=== PATIENT | female | born 1955 | race Caucasian/White ===

== ENCOUNTER 2024-08-30 08:52 | Day surgery (SDC) | payer MEDICARE, BC, SELFPAY ==
[2024-08-30] VITALS (27 sets, daily range): BP systolic 77–145; BP diastolic 46–95; PULSE 56–97; RESP 14–20; TEMP 35.9–36.6; O2SAT 91–97; BMI 30.9
[2024-08-30] MEDS: OXYCODONE (CR) 10 MG TAB.ER.12H PO (09:30)
[2024-08-30] MEDS: ACETAMINOPHEN 500 MG TABLET 1000 MG PO ×3 (09:30→21:21)
[2024-08-30] MEDS: CELECOXIB 200 MG CAPSULE PO ×2 (09:30→21:21)
[2024-08-30] MEDS: SODIUM CHLORIDE 0.9 % (FLUSH) 10 ML SYRINGE IVF (09:45)
[2024-08-30] MEDS: LACTATED RINGERS 1000 ML 1,000 ML 100 ML IV ×2 (09:45→13:57)
[2024-08-30] MEDS: fentaNYL 100 MCG/2 ML inj IVP (10:34)
[2024-08-30] MEDS: MIDAZOLAM HCL 1 MG/ML inj IVP (10:34)
--- NOTE | 2024-08-30 10:40 | SUR.PREOP ---
TIME?OUT:?1033 PT/RN/MDA?VERIFICATION?OF?SURGICAL?SITE,?PROCEDURE,?AND?CONSENT OBTAINED?PRIOR?TO?INVASIVE?PROCEDURE.
[2024-08-30] MEDS: TRANEXAMIC ACID 100 MG/ML INJ 1000 MG IV (11:20)
[2024-08-30] MEDS: CEFAZOLIN 2 GM INJ IVP (11:20)
--- NOTE | 2024-08-30 12:22 | CRLHL7_ITS ---
For Patients: As a result of the Cures Act, medical imaging exams and procedure reports are released immediately into your electronic medical record. You may view this report before your referring provider. If you have questions, please contact your health care provider. INDICATION: Postoperative total knee arthroplasty TECHNIQUE: Knee radiograph 2 views left COMPARISON: None FINDINGS: Bone: No acute fractures or aggressive bone lesions are identified. Joint: The patient is status post a total knee arthroplasty with patellar resurfacing. No significant knee effusion is seen. Soft tissue: Anterior skin, subcutaneous gas and joint gas are present from recent surgery. No radiopaque foreign bodies are seen. IMPRESSION: 1. There is an unremarkable postoperative appearance of the knee arthroplasty. Dictated by: Easton Sahu MD @ 08/31/2024 11:36:17 (Electronically Signed)
--- NOTE | 2024-08-30 12:24 | PM.ORPRC ---
Procedure Note Date of procedure: 08/30/24 Procedure: PREOPERATIVE DIAGNOSIS: Left knee osteoarthritis POSTOPERATIVE DIAGNOSIS: Left knee osteoarthritis NAME OF OPERATION: Left total knee arthroplasty SURGEON: David Rhodes MD FULFILLMENT ASSOCIATE: Merissa Barker PA-C ANESTHESIA: Spinal ESTIMATED BLOOD LOSS: 0 mL COMPLICATIONS: None SPECIMENS: None DRAINS: None PREOPERATIVE ANTIBIOTICS: Ancef 1 g IMPLANTS: 1. J&J Attune #4 posterior stabilized femur 2. #4 fixed-bearing tibia 3. #4 posterior stabilized, 10 mm fixed-bearing polyethylene 4. 38 patella INDICATIONS: The patient is a 69-year-old with a longstanding history of severe, unrelenting left knee pain secondary to end-stage (grade IV) left knee osteoarthritis. Despite appropriate nonoperative management, including activity modification, anti-inflammatories, [id number] pain medication, bracing, physical therapy, and injections they continue to have pain and disability. Operative intervention was offered. The risks, benefits and expected outcomes were discussed in detail. These included but were not limited to: Infection, bleeding, injury to blood vessel or nerve, venous thromboembolism. All questions were answered to their satisfaction. Use of an assistant to the director was necessary throughout the case for patient positioning and safety, soft tissue retraction, and closure. PROCEDURE: Spinal anesthesia was administered. The patient was placed supine on the operating table. The assistant to the director made sure the patient was positioned appropriately. The lower extremity was prepped and draped in the usual sterile fashion. The limb was exsanguinated with the Vaibhav bandage. The pneumatic tourniquet was inflated to 300 mmHg. A standard anterior incision was made with the knee in flexion. Subcutaneous dissection was sharply taken through fascial layer #1. Full-thickness medial and lateral flaps were elevated. The assistant to the director retracted the soft tissues and protected them throughout the case. A standard subvastus approach was made. The patella was subluxed. The infrapatellar fat pad was debrided. The menisci and cruciate ligaments were sharply d?brided. Marginal osteophytes were d?brided with the rongeur. The drill was used to penetrate the femoral canal. The canal was aspirated and irrigated with pulse lavage. The intramedullary femoral guide was placed for a 5-degree valgus cut, removing 10 mm off the distal femur. The saw was used to make the cut. Whitesides line and the trans epicondylar axis were marked. The femoral sizing guide was pinned onto the distal femur. Three degrees of external rotation nicely parallels the transepicondylar axis. Pins were placed for posterior referencing. The four-in-one cutting guide was pinned onto the distal femur. The anterior, posterior, and chamfer cuts were made. The assistant to the director protected the collateral ligaments. The box cutting guide was pinned. The box cuts were made. The boxed trial was placed and was an excellent fit. Drill holes for the lugs were made. Attention was then turned to the proximal tibia. The extramedullary tibial guide was placed for a neutral varus/valgus cut with 5 degrees of posterior slope, removing 2 mm based off the medial tibial surface. The assistant to the director protected the collateral ligaments and the neurovascular bundle. The saw was used to make the cut. Trial components were placed. The knee was nicely balanced in both flexion and extension. The trial components were removed. The tray was placed in appropriate rotation, parallel to our tibial cutting pins. It was pinned by the assistant to the director and the drill and the punch were used. The tray was removed. The punch was used again. We placed a bone plug in the femoral canal. Attention was then turned to the patella. [place] patellar thickness was 19 mm. The lobster claw resection guide was used with the 7.5 mm óscar plus a saw blade used as an extra óscar. The saw was used to make the cut. Drill holes were made by the assistant to the director. The trial was placed and was an excellent fit. Cancellous surfaces were irrigated with pulse lavage and thoroughly dried by the assistant to the director. We cemented the tibial component, then the femoral component. We impacted the 10 mm polyethylene onto the tibial tray. The knee was brought into full extension. We then cemented the patellar component. Excessive cement was removed. The cement was allowed to harden. The knee was taken through a range of motion and was found to be nicely balanced in both flexion and extension. The patella tracks centrally. The assistant to the director did a three minute dilute Betadine solution soak. The assistant to the director irrigated the wound with 3 liters of normal saline via pulse lavage. The assistant to the director reapproximated the extensor mechanism with #1 Vicryl in an interrupted nirhdu-tr-dseoy fashion. The assistant to the director then ran the extensor mechanism with a #1 PDO Stratafix. The assistant to the director closed the subcutaneous tissues with a 3-0 Stratafix and the skin with a running 3-0 Stratafix in a subcuticular fashion. Glue was used to seal the skin. The assistant to the director placed a dry dressing. Sponge and needle counts were correct x2. The patient tolerated the procedure well. There were no apparent complications. They were carefully transferred to the hospital bed and taken to the postanesthesia care unit in satisfactory condition. PLAN: The patient will be mobilized with physical therapy. Aspirin will be used for DVT prophylaxis. They will be discharged to home once medically appropriate.
--- NOTE | 2024-08-30 12:40 | W.PM.NB ---
Nerve Block Nerve Block Time Seen by Provider: 10:35 Date Seen: 08/30/24 Type of block requested by surgeon for post-operative analgesia: adductor canal Side: left Time out performed: Yes Verification of patient name: Yes Verification of date of : Yes Site marking: site marked Name of person performing procedure: Brody Continuous monitoring Was continuous monitoring of O2 sat, B/P, associate veterinarian, recorded every 15 minutes?: Yes Procedure Checklist: sterile prep, needles and gloves Ultrasound guided. Images saved: Yes Medications given in 5ml increments after negative aspiration: Marcaine %: 0.25 mL: 15 Needle gauge: 20 Precedex (mcg): 25 Patient tolerated procedure well: Yes Block Charges Block Charge (with Pro Fee): Femoral Nerve Use of Ultrasound Machine for Block: Yes- US Guidance/pain block
--- NOTE | 2024-08-30 12:41 | P.ANES_ITS ---
Anesthesia Charges Start Date/Time Anesthesia Start Date: 08/30/24 Anesthesia Start Time: 10:49 Stop Date/Time Anesthesia Stop Date: 08/30/24 Anesthesia Stop Time: 13:22 Summary Extremes of Age - Over 70 or under 1: MDA Coding CPT Codes CPT Codes: ANESTH KNEE ARTHROPLASTY - 48550 ([id number]) P2 - PATIENT W/MILD SYST DISEASE, QK - MAIL PROCESSING EQUIPMENT MECHANIC 2-4 CNCRNT ANES PROC, QX - EARTH SCIENCE PROFESSOR SVC W/ MD MED DIRECTION Additional Codes: Summary - Extremes of Age - Over 70 or under 1: MDA ([id number])
--- NOTE | 2024-08-30 12:41 | W.PM.NB ---
Nerve Block Nerve Block Time Seen by Provider: 10:35 Date Seen: 08/30/24 Type of block requested by surgeon for post-operative analgesia: geniculars Side: left Time out performed: Yes Verification of patient name: Yes Verification of date of : Yes Site marking: site marked Name of person performing procedure: Brody Continuous monitoring Was continuous monitoring of O2 sat, B/P, night monitor, recorded every 15 minutes?: Yes Procedure Checklist: sterile prep, needles and gloves Ultrasound guided. Images saved: Yes Medications given in 5ml increments after negative aspiration: Marcaine %: 0.25 mL: 9 Needle gauge: 25 Patient tolerated procedure well: Yes Block Charges Block Charge (with Pro Fee): Genicular Nerve Block
--- NOTE | 2024-08-30 12:41 | W.ANESCHARGE ---
Anesthesia Charges Start Date/Time Anesthesia Start Date: 08/30/24 Anesthesia Start Time: 10:49 Stop Date/Time Anesthesia Stop Date: 08/30/24 Anesthesia Stop Time: 13:22 Summary Extremes of Age - Over 70 or under 1: MDA Coding CPT Codes CPT Codes: ANESTH KNEE ARTHROPLASTY - 06924 ([id number]) P2 - PATIENT W/MILD SYST DISEASE, QK - STAFF NURSE ANESTHETIST 2-4 CNCRNT ANES PROC, QX - VULCAN CREWMEMBER SVC W/ MD MED DIRECTION Additional Codes: Summary - Extremes of Age - Over 70 or under 1: MDA ([id number])
[2024-08-30] MEDS: PHENYLEPHRINE 100 MCG/ML SYRINGE IVP (13:27)
--- NOTE | 2024-08-30 13:31 | P.ANES_ITS ---
Anesthesia Charges Start Date/Time Anesthesia Start Date: 08/30/24 Anesthesia Start Time: 10:49 Stop Date/Time Anesthesia Stop Date: 08/30/24 Anesthesia Stop Time: 13:22 Coding CPT Codes CPT Codes: ANESTH KNEE ARTHROPLASTY - 25290 ([id number]) P2 - PATIENT W/MILD SYST DISEASE, QK - SIZE CUTTER 2-4 CNCRNT ANES PROC, QX - FACTORY MAINTENANCE TECHNICIAN SVC W/ MD MED DIRECTION
--- NOTE | 2024-08-30 13:31 | W.ANESCHARGE ---
Anesthesia Charges Start Date/Time Anesthesia Start Date: 08/30/24 Anesthesia Start Time: 10:49 Stop Date/Time Anesthesia Stop Date: 08/30/24 Anesthesia Stop Time: 13:22 Coding CPT Codes CPT Codes: ANESTH KNEE ARTHROPLASTY - 31289 ([id number]) P2 - PATIENT W/MILD SYST DISEASE, QK - FOOD SPECIALIST 2-4 CNCRNT ANES PROC, QX - ROLLING MACHINE TENDER SVC W/ MD MED DIRECTION
--- NOTE | 2024-08-30 13:40 | SUR.PHASEI ---
Patient came to PACU awake. Blood pressure is low, she received blood pressure support in the OR. Phenylephrine given. Blood pressure came up.
[2024-08-30] MEDS: fentaNYL 100 MCG/2 ML inj 50 MCG IVP (13:42)
--- NOTE | 2024-08-30 13:55 | SUR.PHASEI ---
Patient's pain is under control, awake and talking. She is comfortable. Patient meets discharge criteria for PACU
[2024-08-30] MEDS: HYDROmorphone 0.5 mg/0.5 ml inj IVP ×4 (14:22→18:36)
[2024-08-30] MEDS: OXYCODONE 5 MG TABLET PO ×3 (14:52→22:44)
--- NOTE | 2024-08-30 15:21 | PC.NURSE ---
End of shift [id number] - Pt arrived from PACU at approximately 1400. Pt arrived awake, alert, oriented, and pleasant. Tolerating RA, fluids, and food with no report of nausea. Pt reported pain in operative knee as 6/10. Given medication per MAR with pt reporting little improvement. RN administered alternate medication per MAR with pt reporting tolerating pain. Family at bedside, pt appears to be resting in bed with call light in reach.
--- NOTE | 2024-08-30 15:27 | P.IMCN_ITS ---
Date of Consult Patient: Shahram Patient Consult date: 08/30/24 Requesting Physician: Orthopedics Primary Care Provider: Angie Marshall MD Consult Narrative Reason for consult: Medical management Narrative: Unique Salazar is a 69 year old female past medical history significant for hyperlipidemia not currently on a statin, migraine headaches, osteopenia, r osacea, elevated fasting glucose, history of right TKA is POD#0 s/p left total knee arthroplasty with Dr. Rhodes. There have been no perioperative complications or nursing concerns reported. Estimated total blood loss documented as 0 ml. Updated and reviewed the active medical problems, past medical history, past surgical history, social history, allergies and medications in our electronic EMR. Postoperatively, patient reports the block did not take so her knee pain is elevated at this time. Just received in oxycodone. Starting to feel tired. Denies headache or dizziness. Denies chest pain or shortness of breath. Tolerating orals without nausea vomiting. Review of Systems Narrative: REVIEW OF SYSTEMS: Complete review of systems performed and negative unless otherwise stated in HPI or below. PFSH PFS Medical History Migraine with aura, not intractable ?G43.109 - Migraine with aura, not intractable, without status migrainosus ( ICD-10) Elevated fasting glucose ?R73.01 - Impaired fasting glucose (ICD-10) Osteoarthritis ?M19.90 - Unspecified osteoarthritis, unspecified site (ICD-10) Osteopenia ?M85.80 - Other specified disorders of bone density and structure, unspecified site (ICD-10) Hyperlipidemia ?E78.5 - Hyperlipidemia, unspecified (ICD-10) Rosacea ?L71.9 - Rosacea, unspecified (ICD-10) Surgical History History of delivery ?Z98.891 - History of uterine scar from previous surgery (ICD-10) History of bunionectomy ?Z98.890 - Other specified postprocedural states (ICD-10) History of appendectomy ?Z90.49 - Acquired absence of other specified parts of digestive tract (ICD- 10) History of total right knee replacement (09/25/20) ?Z96.651 - Presence of right artificial knee joint (ICD-10) Social History What is your current living situation?: I presently have a place to live In the past 12 months, utilities in danger of being shut off: no In past 12 months, lack of transportation kept you from medical appts, meetings, work, or getting things needed for daily living: no In the past 12 mos, have been you worried that your food would run out before you had money to buy more?: never true In the past 12 mos, the food you bought just didn't last and you didn't have money to buy more?: never true Highest level of school completed/degree received: high school graduate Smoking Status: Never smoker Do you use any of these nicotine containing products: None Second hand tobacco smoke exposure: No How often do you have a drink containing alcohol: monthly or less Alcohol type: wine How many standard drinks containing alcohol do you have on a typical day: 1 or 2 How often do you have six or more drinks on one occasion: Never AUDIT-C Alcohol total score: 1 Non-prescribed substance use: denies use Caffeine: No How often does anyone, including family, friends and others, physically hurt you : never How often does anyone, including family, friends and others, insult or talk down to you: never How often does anyone, including family, friends and others, threaten you with harm: never How often does anyone, including family, friends and others, scream or curse at you: never service: No Meds Home Medications and Allergies Home Medications ?Medication ?Instructions ?Recorded ?Confirmed ?Type sumatriptan succinate 50 mg tablet 50 mg PO Q2H PRN 03/21/24 08/29/24 History Allergies Allergy/AdvReac Type Severity Reaction Status Date / Time No Known Drug Allergies Allergy Verified 08/30/24 09:13 Exam Narrative: Exam Narrative: PHYSICAL EXAM General: Pleasant, conversant, NAD HEENT: Normocephalic, atraumatic, sclera white, EOMI, oral mucosa moist Cardiovascular: RRR, S1S2. No pitting edema Pulmonary: CTA bilaterally without rhonchi, rales, expiratory wheezes. No dyspnea Neurological: Alert, answering questions appropriately, cranial nerves intact, no focal findings Extremities: No gross joint deformity or swelling. Postoperative dressing in place, dry. Neurovascularly intact Skin: Warm, dry. Const: Vital Signs, click to edit/add: Vital Signs - 24 hr 08/30/24 09:40 08/30/24 10:34 08/30/24 10:40 Temperature 97.9 F Pulse Rate 65 67 64 Respiratory Rate 14 14 14 Blood Pressure 145/93 H 140/86 H 100/65 Pulse Oximetry 94 94 94 Oxygen Delivery Me thod Room Air Nasal Cannula Nasal Cannula Oxygen Flow Rate 2 2 08/30/24 10:45 08/30/24 13:20 08/30/24 13:22 Temperature 97.8 F Pulse Rate 70 61 Respiratory Rate 14 14 Blood Pressure 90/62 77/46 L 77/51 L Pulse Oximetry 95 92 Oxygen Delivery Me thod Nasal Cannula Nasal Cannula Oxygen Flow Rate 2 2 08/30/24 13:25 08/30/24 13:30 08/30/24 13:35 Temperature Pulse Rate 64 60 60 Respiratory Rate 14 16 16 Blood Pressure 81/48 L 113/73 101/63 Pulse Oximetry 92 97 95 Oxygen Delivery Me thod Nasal Cannula Nasal Cannula Nasal Cannula Oxygen Flow Rate 2 2 2 08/30/24 13:40 08/30/24 13:45 08/30/24 13:50 Temperature 97.8 F Pulse Rate 64 56 L 64 Respiratory Rate 16 16 16 Blood Pressure 102/67 102/65 94/55 L Pulse Oximetry 96 94 94 Oxygen Delivery Me thod Room Air Room Air Room Air Oxygen Flow Rate 0 08/30/24 14:00 08/30/24 14:15 08/30/24 14:30 Temperature 96.7 F L 96.9 F L 96.6 F L Pulse Rate 63 65 63 Respiratory Rate 16 16 16 Blood Pressure 110/70 113/79 116/79 Pulse Oximetry 95 92 91 Oxygen Delivery Me thod Room Air Room Air Room Air Oxygen Flow Rate 08/30/24 14:45 08/30/24 14:59 08/30/24 15:15 Temperature 96.9 F L 96.7 F L Pulse Rate 77 63 Respiratory Rate 16 16 16 Blood Pressure 118/79 110/70 Pulse Oximetry 93 95 93 Oxygen Delivery Me thod Room Air Room Air Room Air Oxygen Flow Rate Assessment and Plan Assessment and plan (1) Osteoarthritis of left knee: Problem comment: -POD#0 s/p left TKA, Dr. Rhodes -perioperative management including pain management and anticoagulation per Orthopedic surgery -encourage postoperative pulmonary hygiene -PT OT consults -plan to discharge home with spouse tomorrow Status: Acute Total Time Spent Total Time Spent: Total time spent caring for the patient today was 45 minutes. This includes time spent for the visit reviewing the chart, time spent during the visit, time spent after the visit and documentation and planning in coordination of care.
[2024-08-30] MEDS: LIDOCAINE 5% PATCH 1 PATCH TRANSDERMA (17:03)
[2024-08-30] MEDS: ONDANSETRON 2 MG/ML inj 4 MG IVP (17:07)
[2024-08-30] MEDS: CEFAZOLIN 1 GM in 0.9 % SODIUM CHLORIDE Mini-bag 100 ML IVPB (18:14)
--- NOTE | 2024-08-30 18:58 | PC.NURSE ---
End of shift report [id number]: Alert and oriented x 4. Pain to knee reported, patient receiving minimal relief from PRN medications, ice and positioning. PRN dilaudid 0.5mg administer every 1-1.5 hours for severe pain, also receiving PRN oxycodone 10mg q2h and scheduled tylenol. CMS to left knee intact, patient is able to move left lower extremity, able to wiggle toes and can feel each area on extremity that entry writer is touching. Dressing is clean, dry and intact. No areas of increased redness and not drainage noted. At 1700 patient transferred to bedside commode with minimal assist with gait belt [place] [facility] [place] became diaphoretic and nauseated with transfer. PRN zofran administered and aromatherapy patch utilized along with alcohol prep pad. Nausea resolved. Pain continues in left knee and varies between 6-9, new order for lidocaine patch to left thigh. Accounting Practice Manager placed call to generation engineer ortho BRIGETTE Enriquez and new orders for hydroxyzine 50mg q4h prn for pain and celebrex 200mg po BID. Accounting Practice Manager updated Jenise Brown.
--- NOTE | 2024-08-30 20:38 | P.NB_ITS ---
Nerve Block Nerve Block Time Seen by Provider: 20:25 Date Seen: 08/30/24 Type of block requested by surgeon for post-operative analgesia: adductor canal Side: left Time out performed: Yes Verification of patient name: Yes Verification of date of : Yes Site marking: site marked Name of person performing procedure: l faith Continuous monitoring Was continuous monitoring of O2 sat, B/P, gaming surveillance observer, recorded every 15 minutes?: Yes Procedure Checklist: sterile prep, needles and gloves Ultrasound guided. Images saved: Yes Medications given in 5ml increments after negative aspiration: Marcaine %: 0.25 mL: 10 and Exparel mL: 10 Patient tolerated procedure well: Yes Block Charges Block Charge (with Pro Fee): Femoral Nerve Use of Ultrasound Machine for Block: Yes- US Guidance/pain block
[2024-08-30] MEDS: SENNOSIDES 1 TAB TABLET 2 TAB PO (21:21)
[2024-08-30] MEDS: ASPIRIN 81 MG TABLET EC PO (21:22)
[2024-08-30] MEDS: hydrOXYzine pamoate 25 MG CAPSULE 50 MG PO (22:44)
[2024-08-30] MEDS: 0.9 % SODIUM CHLORIDE 500 ML IV (22:58)
[2024-08-31] MEDS: OXYCODONE 5 MG TABLET PO ×4 (02:31→10:02)
[2024-08-31] MEDS: CEFAZOLIN 1 GM in 0.9 % SODIUM CHLORIDE Mini-bag 100 ML IVPB (02:31)
[2024-08-31] MEDS: ACETAMINOPHEN 500 MG TABLET 1000 MG PO ×2 (02:31→09:40)
[2024-08-31 03:00] VITALS: BP 133/96; PULSE 81; RESP 18; TEMP 36.9; O2SAT 94
--- NOTE | 2024-08-31 05:37 | PC.NURSE ---
[id number] Pt pain controlled well during night, pt able to sleep. ice to L knee, dressing C/D/I, ambulating with walker, GB, 1A, tolerating activity well. denies N/V.
[2024-08-31 07:00] VITALS: BP 102/67; PULSE 78; PULSE 81; RESP 16; TEMP 36.7; O2SAT 96
[2024-08-31 07:02] LABS: Basophils Percent Auto 0.1 % (0.0-3.0); Hematocrit 41.6 % (33.0-51.0); Hemoglobin* 13.3 gm/dL (12.0-16.0); Immature Granulocytes Pct Auto 0.2 %; Lymphocytes Percent Auto 15.1 % (20-44); Mean Corpuscular HGB Conc 32 gm/dL (32-36); Mean Corpuscular Hemoglobin 30 pg (26-34); Mean Corpuscular Volume 93 fL (80-100); Monocytes Percent Auto 10.3 % (0.0-11.0); Neutrophils Percent Auto 74.3 % (42.0-72.0); Platelet Count* 244 K/uL (140-440); RDW Coefficient of Variation % 12.6 % (11.5-15.5); Red Blood Count 4.46 m/uL (4.00-5.20); White Blood Count* 11.46 K/uL (4.50-11.00)
[2024-08-31 07:03] LABS: Slide Review Reflex No
[2024-08-31 07:09] LABS: INR 0.96 (0.91-1.10); Prothrombin Time 13.4 Seconds
[2024-08-31 07:13] LABS: Potassium* 4.2 mmol/L (3.6-5.1); Sodium* 133 mmol/L (135-149)
[2024-08-31 07:16] LABS: Blood Urea Nitrogen* 19 mg/dL (7-30); Creatinine* 0.8 mg/dL (0.5-1.5); Estimated Glomerular Filt Rate 79 ml/min
[2024-08-31] MEDS: ASPIRIN 81 MG TABLET EC PO (08:13)
[2024-08-31] MEDS: SENNOSIDES 1 TAB TABLET 2 TAB PO (08:13)
[2024-08-31] MEDS: CELECOXIB 200 MG CAPSULE PO (08:14)
--- NOTE | 2024-08-31 10:11 | PC.NURSE ---
End of shift report [id number]: Pleasant and cooperative with cares. Pain to left knee well managed with current regimen. Dressing clean, dry and intact. Left knee has non pitting edema, no redness or warmth noted. Transfers with SBA with gait belt and walker. Tolerated PT and OT without concerns, discharge order obtained. Reviewed discharge paperwork with patient, no questions or concerns. Transported to private vehicle via wheelchair. IV discontinued prior to discharge. bedside and discharge paperwork reviewed with spouse as well.
== END 2024-08-31 10:10 | disposition home or self-care (01) ==
LOC: OR 08:56 → MEDSURG 08:57
PROVIDERS: PCP Family Medicine; Visit Provider Orthopaedic Surgery
PROC: (CPT 27447; principal; 2024-08-30 11:15)
DX: M17.12 Unilateral primary osteoarthritis, left knee (principal); G89.18 Other acute postprocedural pain; R73.01 Impaired fasting glucose; E78.5 Hyperlipidemia, unspecified; M85.80 Other specified disorders of bone density and structure, unspecified site; Z79.01 Long term (current) use of anticoagulants
CPT/HCPCS: 27447; 01402; 36415; 51798; 64447; 64454; 73560; 76942; 82565; 84132; 84295; 84520; 85025; 85610; 94761; 97116; 97162; 97165; 97530; 97535; 99100; A9270; C1776; J0665; J0690; J1100; J1171; J2250; J2371; J2405; J2704; J3010; J7030; J7120